=== PATIENT | female | born 1985 | race Caucasian/White ===

== ENCOUNTER 2016-12-21 22:18 | Outpatient (CLI) | payer BC ==
[~2016-12-21] VITALS: Ht 162.6 cm; Wt 69.1 kg
[~2016-12-21 22:18] MED LIST: AMOXICILLIN 8751 TAB PO; IBIFON 600600 MG PO; PERCOCET 325 MG1 TA2 PO; PRENATAL1 TA1 PO; SLOW FE45 MG PO; ZOFRAN 4MG T4 MG/TAB PO
[2016-12-21 22:35] VITALS: BP 124/72; PULSE 66; TEMP 98.4
[2016-12-21] MEDS ORDERED: PRENATAL1 TA7 PO (22:41)
[2016-12-21] MEDS ORDERED: TUMS500 MG PO (22:41)
== END 2016-12-21 23:45 | disposition home or self-care (01) ==
LOC: LDRO 22:18
DX: O62.9 Abnormality of forces of labor, unspecified (principal); Z3A.25 25 weeks gestation of pregnancy

== ENCOUNTER → 2017-01-31 | Outpatient (CLI) | payer BC ==
[~2017-01-31] MED LIST changes: +CLARITIN 1010 MG/TAB PO; +PRENATAL1 TA7 PO; +PROCARDIA10 MG PO; +TUMS500 MG PO; +TYLENOL 500MG500 MG PO
== END ==
LOC: SUN.DIA 12:42
DX: O24.419 Gestational diabetes mellitus in pregnancy, unspecified control (principal); Z3A.31 31 weeks gestation of pregnancy; Z71.3 Dietary counseling and surveillance
CPT/HCPCS: G0108

== ENCOUNTER → 2017-02-08 | Outpatient (CLI) | payer BC | LOC: SUN.DIA 11:05 | DX: O24.419 Gestational diabetes mellitus in pregnancy, unspecified control (principal); Z3A.31 31 weeks gestation of pregnancy; Z71.3 Dietary counseling and surveillance; Z68.27 Body mass index [BMI] 27.0-27.9, adult | CPT/HCPCS: G0108 ==

== ENCOUNTER 2017-02-15 18:35 | Outpatient (CLI) | payer BC ==
[~2017-02-15] VITALS: Ht 162.6 cm; Wt 72.7 kg
[~2017-02-15 18:35] MED LIST changes: -CLARITIN 1010 MG/TAB PO; -PROCARDIA10 MG PO; -TYLENOL 500MG500 MG PO
[2017-02-15 18:50] VITALS: BP 126/80; PULSE 83; TEMP 99.2
[2017-02-15] MEDS ORDERED: PROCARDIA10 MG PO (18:55)
[2017-02-15] MEDS ORDERED: CLARITIN 1010 MG/TAB PO (18:56)
[2017-02-15] MEDS ORDERED: TYLENOL 500MG500 MG PO (18:57)
[2017-02-15 19:30] VITALS: BP 112/62; PULSE 75
[2017-02-15 20:03] VITALS: BP 118/84; PULSE 89
== END 2017-02-15 20:00 | disposition home or self-care (01) ==
LOC: LDRO 18:35
DX: O62.9 Abnormality of forces of labor, unspecified (principal); Z3A.33 33 weeks gestation of pregnancy

== ENCOUNTER 2017-03-28 00:10 | Inpatient (IN) | payer BC ==
[2017-03-28] VITALS (20 sets, daily range): BP systolic 103–137; BP diastolic 60–86; PULSE 64–107; TEMP 97.5–98.1
[~2017-03-28 00:10] MED LIST changes: +CLARITIN 1010 MG/TAB PO; +PROCARDIA10 MG PO; +TYLENOL 500MG500 MG PO
[2017-03-28 01:27] LABS: BASO % 0.4 % (0.0-2.0); EOS # 0.1 (0.0-0.7); EOS % 0.8 % (0-4.0); GRAN # 5.3 (1.4-6.5); GRAN % 59.1 % (42.2-75.2); LYMPH # 2.9 (1.2-3.4); LYMPH % 32.1 % (20.0-51.0); MEAN CELL VOLUME 89 fl (80.0-100.0); MEAN CORPUSCULAR HGB CONC 33 g/dl (33.0-37.0); MEAN PLATELET VOLUME 10.8 fl (7.4-10.4); MONO # 0.6 (0.1-0.6); MONO % 6.5 % (1.7-9.3); PLATELET COUNT 171 K/mm3 (130-400); RED BLOOD COUNT 3.55 M/mm3 (4.10-5.30)
[2017-03-28 01:28] LABS: HEMATOCRIT 31.5 % (37.0-47.0); HEMOGLOBIN 10.5 g/dl (12.5-16.0); MEAN CORPUSCULAR HEMOGLOBIN 30 pg (27.0-31.0)
[2017-03-28 07:56] LABS: HEMOGLOBIN 9.1 g/dl (12.5-16.0)
[2017-03-29 06:30] VITALS: BP 125/69; PULSE 78; TEMP 98.2
[2017-03-29 07:10] VITALS: BP 112/59; PULSE 80
[2017-03-29 07:30] VITALS: BP 121/64; PULSE 95
[2017-03-29 07:51] LABS: BASO % 0.4 % (0.0-2.0); EOS # 0.1 (0.0-0.7); EOS % 1.2 % (0-4.0); GRAN # 7.5 (1.4-6.5); GRAN % 72.7 % (42.2-75.2); LYMPH # 2.1 (1.2-3.4); LYMPH % 19.9 % (20.0-51.0); MEAN CELL VOLUME 91 fl (80.0-100.0); MEAN CORPUSCULAR HGB CONC 32 g/dl (33.0-37.0); MEAN PLATELET VOLUME 10.2 fl (7.4-10.4); MONO # 0.5 (0.1-0.6); MONO % 5.1 % (1.7-9.3); PLATELET COUNT 139 K/mm3 (130-400); RED BLOOD COUNT 2.91 M/mm3 (4.10-5.30); WHITE BLOOD COUNT 10.3 K/mm3 (4.8-10.8)
[2017-03-29 08:02] LABS: HEMATOCRIT 26.4 % (37.0-47.0); HEMOGLOBIN 8.5 g/dl (12.5-16.0); MEAN CORPUSCULAR HEMOGLOBIN 29 pg (27.0-31.0)
[2017-03-29 08:25] VITALS: BP 109/58; PULSE 74
[2017-03-29 16:00] VITALS: BP 113/72; PULSE 97; TEMP 98.2
[2017-03-29 20:30] VITALS: BP 119/69; PULSE 87; TEMP 97.9
[2017-03-30 07:00] VITALS: BP 114/70; PULSE 90; TEMP 98.7
[2017-03-30] MEDS ORDERED: PERCOCET 325 MG1 TA2 PO (09:32)
[2017-03-30] MEDS ORDERED: IBU600 MG PO (09:32)
[2017-03-30 16:33] VITALS: BP 119/75; PULSE 82; TEMP 97.6
[2017-03-30 22:30] VITALS: BP 119/73; PULSE 73; TEMP 98.1
[2017-03-31 07:00] VITALS: BP 119/75; PULSE 81; TEMP 98.1
== END 2017-03-31 12:20 | disposition home or self-care (01) | DRG 766 ==
LOC: LDRO 00:10 → OB 00:43 → LDR 00:43 → OB 03:45
PROVIDERS: Obstetrics & Gynecology; Student in an Organized Health Care Education/Training Program
PROC: 10D00Z1 Extraction of Products of Conception, Low, Open Approach (ICD-10-PCS; principal; 2017-03-28)
PROC: 0UB70ZZ Excision of Bilateral Fallopian Tubes, Open Approach (ICD-10-PCS; 2017-03-28)
DX: O32.1XX0 Maternal care for breech presentation, not applicable or unspecified (principal); O24.420 Gestational diabetes mellitus in childbirth, diet controlled; Z40.03 Encounter for prophylactic removal of fallopian tube(s); Z3A.39 39 weeks gestation of pregnancy; Z37.0 Single live birth
CPT/HCPCS: J0690; J1885; J2175; J2250; J2270; J2370; J2405; J2590; J7120

== ENCOUNTER → 2017-04-06 | Outpatient (CLI) | payer BC ==
[~2017-04-06] MED LIST changes: +IBU600 MG PO
== END ==
LOC: LAC 14:03
DX: Z39.1 Encounter for care and examination of lactating mother (principal); Z71.89 Other specified counseling

== ENCOUNTER → 2017-05-24 | Outpatient (CLI) | payer BC | LOC: OLC 10:38 | DX: Z39.1 Encounter for care and examination of lactating mother (principal); Z71.89 Other specified counseling ==

== ENCOUNTER → 2018-09-07 | Outpatient (CLI) | payer BC | LOC: COL.RAD 13:30 | DX: R10.13 Epigastric pain (principal); R10.11 Right upper quadrant pain ==

== ENCOUNTER → 2018-10-13 | Outpatient (CLI) | payer BC | LOC: MC.RAD 11:12 | DX: Z12.31 Encounter for screening mammogram for malignant neoplasm of breast (principal); N63.11 Unspecified lump in the right breast, upper outer quadrant ==

== ENCOUNTER → 2018-10-18 | Outpatient (CLI) | payer BC | LOC: MC.RAD 09:51 | DX: N63.10 Unspecified lump in the right breast, unspecified quadrant (principal); R59.0 Localized enlarged lymph nodes ==

== ENCOUNTER → 2021-10-27 | Outpatient (CLI) | payer BC | LOC: MC.RAD 14:07 | DX: Z12.31 Encounter for screening mammogram for malignant neoplasm of breast (principal); R92.2 Inconclusive mammogram; N64.89 Other specified disorders of breast ==

== ENCOUNTER → 2021-10-29 | Outpatient (CLI) | payer BC | LOC: MC.RAD 13:21 | DX: N64.89 Other specified disorders of breast (principal) ==